=== PATIENT | female | born 1955 | race Caucasian/White ===

== ENCOUNTER 2016-10-24 06:20 | Emergency (ER) | payer OTHER, BC ==
[~2016-10-24] VITALS: Ht 160 cm; Wt 89.0 kg
[~2016-10-24 06:20] MED LIST: ALPR-411 PO
[2016-10-24 06:24] VITALS: TEMP 36.5; Ht 160 cm; Wt 89.0 kg
[2016-10-24] MEDS ORDERED: FAMOTIDINE 20 MG TAB PO STA (06:45)
[2016-10-24] MEDS ORDERED: GI COCKTAIL PO STA (06:45)
[2016-10-24] MEDS ORDERED: SODIUM CHLORIDE 0.9% 1000ML 1,000 ML IV STA (06:45)
[2016-10-24] MEDS ORDERED: SUCRALFATE 1 GM TAB PO STA (06:45)
[2016-10-24] MEDS ORDERED: hydrOXYzine HCL 25 MG TAB PO STA (06:45)
--- NOTE | 2016-10-24 06:48 | EMERGENCY ROOM VISIT NOTE ---
History Report prepared by [place]: Velma Huerta Under the Supervision of: Dr. Carlos Torres M.D. First contact with patient: 06:35 Chief Complaint: ANXIETY Stated Complaint: SEVERE ANXIETY,PRESSURE AND BURPING History of Present Illness The patient is a 61 year old female who presents to the Emergency Room with complaints of worsening anxiety recently. She admits to recent stress in her life with moving from [place] to the [facility] approximately 1 year ago. Her is 14 years older than her and she takes care of him, which has added to her stress. She has a history of anxiety and reports she has been off Ativan for "a couple months", since her primary care physician stopped filling her prescription. She took 1/2 of a Xanax last night and was able to sleep for a few hours, but she did feel anxious again when she woke up. She complains of feeling "shaky", experiencing increased belching and a tingling feeling in her hands. She does not currently see a therapist, but states she has seen one in the past. The patient also admits to a history of depression and notes she has experienced side effects to medications in the past, stating she weaned herself off of Trazodone in the past. She denies seeing any therapist or psychiatrist currently but notes she has seen a therapist in the past. The patient denies feeling suicidal or homicidal currently. She also complains of experiencing chest tightness recently, but states she cannot use her inhaler for her asthma because it makes her anxiety worse. 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 A total of 10 systems reviewed and were otherwise negative. Past Medical & Surgical Medical Problems: (1) Anxiety (2) Asthma (3) Depression Social History Smoking Status: Never Smoker Alcohol Use: occasionally Drug Use: none Marital Status: Housing Status: lives with significant other Occupation Status: retired Current/Historical Medications Scheduled [[place]], 1 TAB PO DAILY [Gua Kathy Maicol Yanna Corbett], 2 TABS PO AMPM [[place]], 1 TAB PO DAILY Scheduled PRN Alprazolam (Xanax), 0.5 MG PO BID PRN for Anxiety Lorazepam (Ativan), 1 MG PO DAILY PRN for Anxiety Allergies Uncoded Allergies: STEROIDS (Adverse Reaction, Unknown, vision problems, anxiety, 10/24/16) Physical Exam Vital Signs Date Time Temp Pulse Resp B/P Pulse Ox O2 Delivery O2 Flow Rate FiO2 10/24/16 08:04 92 16 159/91 97 Room Air 10/24/16 06:24 36.5 111 20 161/97 97 Room Air Physical Exam GENERAL: Patient is a healthy-appearing well-nourished HEAD: Normocephalic atraumatic EYES: Ocular movements intact pupils equal and react to light OROPHARYNX mucous membranes are moist no exudates present no erythema or edema present NECK: Supple no nuchal rigidity CHEST: Good equal expansion LUNGS: Clear and equal to auscultation CARDIAC: Normal S1 and S2 ABDOMEN: Soft nontender no guarding BACK: No CVA tenderness EXTREMITIES: No pain upon palpation normal muscle strength in all groups no clubbing cyanosis or edema NEURO: Patient is following commands is answering questions appropriately. Alert and oriented x3 Cranial Nerves 2-12 grossly intact PSYCHIATRIC: The patient denies being suicidal or homicidal. Medical Decision & Procedures ER Provider Diagnostic Interpretation: This X-Ray was reviewed and interpreted by myself and the radiologist. SINGLE VIEW CHEST IMPRESSION: No active disease in the chest. Electronically signed by: Gerry Bunn M.D. 10/24/2016 8:01 AM Laboratory Results 10/24/16 07:06 Red Blood Count 5.02, Mean Corpuscular Volume 85.5, Mean Corpuscular Hemoglobin 30.5, Mean Corpuscular Hemoglobin Concent 35.7, Mean Platelet Volume 8.8, Neutrophils (%) (Auto) 61.9, Lymphocytes (%) (Auto) 26.2, Monocytes (%) (Auto) 9.4, Eosinophils (%) (Auto) 1.7, Basophils (%) (Auto) 0.6, Neutrophils # (Auto) 5.56, Lymphocytes # (Auto) 2.35, Monocytes # (Auto) 0.84, Eosinophils # (Auto) 0.15, Basophils # (Auto) 0.05 10/24/16 07:06 Test 10/24/16 07:06 10/24/16 07:10 White Blood Count 8.97 K/uL (4.8-10.8) Red Blood Count 5.02 M/uL (4.2-5.4) Hemoglobin 15.3 g/dL (12.0-16.0) Hematocrit 42.9 % (37-47) Mean Corpuscular Volume 85.5 fL (80-100) Mean Corpuscular Hemoglobin 30.5 pg (25-34) Mean Corpuscular Hemoglobin Concent 35.7 g/dl (32-36) Platelet Count 199 K/uL (130-400) Mean Platelet Volume 8.8 fL (7.4-10.4) Neutrophils (%) (Auto) 61.9 % Lymphocytes (%) (Auto) 26.2 % Monocytes (%) (Auto) 9.4 % Eosinophils (%) (Auto) 1.7 % Basophils (%) (Auto) 0.6 % Neutrophils # (Auto) 5.56 K/uL (1.4-6.5) Lymphocytes # (Auto) 2.35 K/uL (1.2-3.4) Monocytes # (Auto) 0.84 K/uL (0.11-0.59) Eosinophils # (Auto) 0.15 K/uL (0-0.5) Basophils # (Auto) 0.05 K/uL (0-0.2) RDW Standard Deviation 38.9 fL (36.4-46.3) RDW Coefficient of Variation 12.6 % (11.5-14.5) Immature Granulocyte % (Auto) 0.2 % Immature Granulocyte # (Auto) 0.02 K/uL (0.00-0.02) Est Creatinine Clear Calc Drug Dose 87.0 ml/min Estimated GFR () 106.9 Estimated GFR (Non- 92.2 BUN/Creatinine Ratio 26.8 (10-20) Calcium Level 8.8 mg/dl (8.5-10.1) Magnesium Level 2.0 mg/dl (1.8-2.4) Total Bilirubin 1.0 mg/dl (0.2-1) Direct Bilirubin 0.2 mg/dl (0-0.2) Aspartate Amino Transf (AST/SGOT) 20 U/L (15-37) Alanine Aminotransferase (ALT/SGPT) 51 U/L (12-78) Alkaline Phosphatase 63 U/L (45-117) Total Protein 7.5 gm/dl (6.4-8.2) Albumin 3.7 gm/dl (3.4-5.0) Lipase 191 U/L (73-393) Bedside Hemoglobin 15.6 g/dl (12.0-16.0) Bedside Hematocrit 46 % (37-47) Bedside Sodium 139 mEq/L (135-144) Bedside Potassium 3.5 mEq/L (3.3-5.0) Bedside Chloride 101 mEq/L (101-112) Bedside Total CO2 25 mEq/l (24-31) Anion Gap 17.0 mmol/L (16-25) Bedside Blood Urea Nitrogen 19 mg/dl (7-18) Bedside Creatinine 0.6 mg/dl (0.6-1.3) Bedside Glucose (other) 144 mg/dl (70-99) Bedside Ionized Calcium (Nelson) 1.12 mmol/l (1.12-1.32) Labs reviewed by ED physician. Medications Administered Medications (Trade) Dose Ordered Sig/Matteo Route Start Time Stop Time Status Last Admin Dose Admin Miscellaneous Medication (Gi Cocktail) 24 ml NOW STAT PO 10/24/16 06:45 10/24/16 06:50 DC 10/24/16 06:45 24 ML Famotidine (Pepcid Tab) 20 mg NOW STAT PO 10/24/16 06:45 10/24/16 06:50 DC 10/24/16 07:20 20 MG Sucralfate (Carafate Tab) 1 gm NOW STAT PO 10/24/16 06:45 10/24/16 06:50 DC 10/24/16 07:20 1 GM Hydroxyzine HCl (Vistaril Tab) 25 mg NOW STAT PO 10/24/16 06:45 10/24/16 06:50 DC 10/24/16 07:20 25 MG Al Hydroxide/Mg Hydroxide (Maalox Susp) 30 ml STK-MED ONCE .ROUTE 10/24/16 07:08 10/24/16 07:11 DC 10/24/16 07:21 30 ML Lidocaine HCl (Viscous Lidocaine 2% Soln) 20 ml STK-MED ONCE .ROUTE 10/24/16 07:10 10/24/16 07:13 DC 10/24/16 07:21 20 ML Potassium Chloride (Klor-Con M10) 40 meq NOW STAT PO 10/24/16 07:34 10/24/16 07:35 DC 10/24/16 08:11 40 MEQ ECG Indication: chest pain Rate (beats per minute): 107 Rhythm: sinus tachycardia Findings: no acute ischemic change, no ectopy ED Course 0638: Past medical records reviewed. The patient was evaluated in room A2. A complete history and physical examination was performed. 0645: Vistaril Tab 25 mg PO, Carafate Tab 1 gm PO, Pepcid 20 mg PO, GI cocktail 24 ml PO. 0654: Nursing informed me the patient states she is afraid of needles and is refusing an IV as it is making her feel even more anxious. She has things to drink at home to keep her hydrated. She states she "just came here to see if she had a heart attack", and would like to go home. 0655: I reevaluated the patient. I discussed my recommendation that she remain in the ED for a chest X-Ray and she verbalized complete understanding and agreement. 0708: Maalox Susp 30 ml PO. 0710: Lidocaine HCl 20 ml PO. 0734: Potassium Chloride 40 meq PO. 0735: I spoke with Case Management. They will look into having the patient follow up with Psychiatry. 0805: Case Management has evaluated the patient. They will have our [facility] Mental Health Liaison call the patient on Wednesday to arrange for Psychiatric follow up. 0820: I reevaluated the patient. She was sleeping but awoke to talk with me. I went over the side effects for Vistaril, and she states she does not want to take it. I discussed the importance of follow up with Psychiatry. The patient states she will follow up with her primary care physician, Dr. Tristen Moe. I discussed her discharge instructions and she verbalized complete understanding and agreement. Medical Decision Prior records/ancillary studies reviewed. Triage Nursing notes reviewed. The patient's history was concerning for possible psychiatric disturbance. Differential diagnosis: Etiologies such as mood disorder, infection, hypoglycemia, electrolyte abnormalities, cardiac sources, intracerebral event, toxicologic, neurologic, as well as others were entertained. This is a 61-year-old female who presents emergency department complaining of anxiety. The patient reports that her primary care physician which she recently switched to stop writing her for Ativan however she has still been taking Xanax for her anxiety. The patient reports she has been off her Ativan for several months. The patient reports that she has not been following up with a psychiatrist. Her EKG here is normal and she has a normal CBC as well as normal renal profile. The patient denies being suicidal or homicidal. The patient was given a GI cocktail, Pepcid as well as Carafate and Vistaril. Repeat exam in approximately 2 hours revealed much improvement in the patient's symptoms as she was sleeping. I recommended that the patient be continued on Vistaril at home however the patient wishes to go over the side effects which I did. The patient at this point does not wish to be placed on Vistaril. I stressed that I cannot place her on any other psychiatric medication and that she needed follow-up with psychiatry. Case management did meet with the patient and are going to pursue follow-up on Wednesday however it sounds like the patient is reluctant to do this. She is going to follow-up with her primary care physician. [place] Drug Monitoring Program Search Results: patient reviewed within database, no issues identified Impression Primary Impression: Anxiety Scribe Attestation The scribe's documentation has been prepared under my direction and personally reviewed by me in its entirety. I confirm that the note above accurately reflects all work, treatment, procedures, and medical decision making performed by me. Departure Information Dispostion Home / Self-Care Referrals No Doctor, Assigned (PCP) Patient Instructions Anxiety Body Response, Disorder Generalized Anxiety, My [facility] Additional Instructions Follow up with Electrical Manager on Wednesday You have been examined and treated today on an emergency basis only. This is not a substitute for, or an effort to provide, complete comprehensive medical care. It is impossible to recognize and treat all injuries or illnesses in a single emergency department visit. It is therefore important that you follow up closely with Dr Moe. Call as soon as possible for an appointment. Thank you for your time and consideration. I look forward to speaking with you again soon. Please don't hesitate to call us if you have any questions.
[2016-10-24] MEDS ORDERED: ATV/1 PO (06:57)
[2016-10-24] MEDS ORDERED: [UNRECOGNIZED DRUG - OTHER] PO (06:58)
[2016-10-24] MEDS ORDERED: BACOPA COMPLEX PO (07:00)
[2016-10-24] MEDS ORDERED: [UNRECOGNIZED DRUG - OTHER] PO (07:01)
[2016-10-24] MEDS ORDERED: ALUMINUM/MAGNESIUM SUSP 30 ML UDC ONE (07:08)
[2016-10-24] MEDS ORDERED: LIDOCAINE HCL 2% VISC SOLN 20 ML UDC ONE (07:10)
[2016-10-24 07:17] LABS: BASO % 0.6 %; BASO ABS # 0.05 K/uL (0-0.2); COMPLETE YES; EOS % 1.7 %; HEMATOCRIT 42.9 % (37-47); IG% 0.2 %; LYMPH % 26.2 %; LYMPH ABS # 2.35 K/uL (1.2-3.4); MEAN CELL VOLUME 85.5 fL (80-100); MEAN CORPUSCULAR HEMOGLOBIN 30.5 pg (25-34); MEAN CORPUSCULAR HGB CONC 35.7 g/dl (32-36); MEAN PLATELET VOLUME 8.8 fL (7.4-10.4); MONO % 9.4 %; NEUT % 61.9 %; PLATELET COUNT 199 K/uL (130-400); RED BLOOD COUNT 5.02 M/uL (4.2-5.4); WHITE BLOOD COUNT 8.97 K/uL (4.8-10.8)
[2016-10-24 07:27] LABS: ISTAT CREATININE 0.6 mg/dl (0.6-1.3); ISTAT HEMOGLOBIN 15.6 g/dl (12.0-16.0); ISTAT IONIZED CALCIUM 1.12 mmol/l (1.12-1.32)
[2016-10-24 07:31] LABS: BUN/CREATININE RATIO 26.8 (10-20); CALCIUM 8.8 mg/dl (8.5-10.1); CREATININE 0.7 mg/dl (0.60-1.20); POTASSIUM 3.6 mmol/L (3.5-5.1)
[2016-10-24] MEDS ORDERED: POTASSIUM CHLORIDE 10 MEQ TABCR PO STA (07:34)
--- NOTE | 2016-10-24 08:03 | DIAGNOSTIC IMAGING REPORT ---
SINGLE VIEW CHEST CLINICAL HISTORY: Atypical chest pain. FINDINGS: An AP, portable, upright chest radiograph is obtained. No prior studies are available for comparison at the time of dictation. The examination is degraded by portable technique and large body habitus. The cardiomediastinal silhouette is unremarkable. The lungs and pleural spaces are clear. No pneumothorax is seen. The bony thorax is grossly intact. IMPRESSION: No active disease in the chest. Electronically signed by: Gerry Bunn M.D. 10/24/2016 8:01 AM Dictated Date/Time: 10/24/2016 8:01 AM
[2016-10-24 08:04] VITALS: BP 159/91; PULSE 92; O2SAT 97
== END 2016-10-24 08:28 | disposition home or self-care (01) ==
LOC: C.EDB 06:22 → C.EDA 08:28
DX: F41.9 Anxiety disorder, unspecified (principal); R07.9 Chest pain, unspecified; R20.0 Anesthesia of skin; J45.909 Unspecified asthma, uncomplicated

== ENCOUNTER 2023-07-07 08:54 | Observation (INO) ==
[2023-07-07] MEDS ORDERED: LORazepam 1 MG/1 ML SYR ED Inj Use IV STA (09:40)
--- NOTE | 2023-07-07 09:50 | Emergency Department Note ---
History of Present Illness General Chief complaint: Hypertension Stated complaint: HTN,DEHYDRATION, Time Seen by Provider: 07/07/23 09:25 History of Present Illness 68-year-old female presents emergency department states that for the past few days her blood pressure has been high. Patient was seen by her primary care physician this week. Patient has had increased panic attacks and anxiety. Patient did take a Xanax last evening as well as a Robaxin last night as a muscle relaxer she actually felt improved however this morning she woke up her blood pressure was high again she took her ex-'s 10 mg propranolol. Patient was offered blood pressure medicine by her primary care physician but she decided not to take it. Patient states that she has a history of high anxiety and at times she does use Ativan as a rescue but she did not today. Patient however denies any slurred speech blurred vision shortness of breath nausea vomiting chest pain. Patient states that she is very anxious Home Medications Medication Instructions Recorded Confirmed Type Alprazolam (Xanax) 0.5 mg PO BID PRN Anxiety ##0 07/06/08 07/07/23 History LORAZEPAM (ATIVAN) 1 mg PO DAILY PRN Anxiety #0 tabs 10/24/16 07/07/23 History omega 3-dha 60 mg-epa 90 mg-fish 1 cap PO DAILY 12/01/21 07/07/23 History oil 500 mg capsule, delayed release (Fish Oil) ipratropium 20 mcg-albuterol 100 1 puff inhalation Q4H PRN wheezing 06/26/22 07/07/23 Rx mcg/actuation mist for inhalation #4 grams (Combivent Respimat) Allergies Allergy/AdvReac Type Severity Reaction Status Date / Time STEROIDS AdvReac Unknown vision Uncoded 10/24/16 06:30 problems, anxiety Past Med/Surg History Social History Smoking Status: Never smoker Tobacco Type: Cigarettes Preferred Language: Bel[place] Feels Safe at Home: Yes Immunizations: Past medical history includes anxiety, depression Review of Systems A total of 10 systems reviewed and were otherwise negative Constitutional: no fever Ear, Nose, Mouth, Throat: no ear pain Respiratory: no cough Physical Exam Vital Signs Vital Signs - 24 hr 07/07/23 08:57 07/07/23 09:35 07/07/23 09:54 Temperature 36.6 C Temperature Source Temporal Artery Scan Pulse Rate 96 H Pulse Rate [Apical] 86 Respiratory Rate 17 20 Respiratory Effort / Characteristics Non-Labored Spontaneous Non-Labored Respiratory Depth Normal Normal Blood Pressure 187/104 H Blood Pressure [Right Arm] 179/102 H Blood Pressure Mean 131 Blood Pressure Mean [Right Arm] 127 Blood Pressure Position Sitting Pulse Oximetry 95 95 96 Oxygen Delivery Method Room Air Room Air Room Air Sepsis Recent Fever Within 48 Hours No Sepsis New/Unexplained Change in Mental Status No Sepsis Action Taken by Nursing No Action Required 07/07/23 11:23 07/07/23 11:50 07/07/23 11:53 Temperature Temperature Source Pulse Rate Pulse Rate [Apical] 43 L 42 L Respiratory Rate 22 24 Respiratory Effort / Characteristics Non-Labored Respiratory Depth Normal Blood Pressure Blood Pressure [Right Arm] 150/92 H 71/37 L 79/41 L Blood Pressure Mean Blood Pressure Mean [Right Arm] 111 48 53 Blood Pressure Position Pulse Oximetry 98 99 Oxygen Delivery Method Room Air Room Air Sepsis Recent Fever Within 48 Hours Sepsis New/Unexplained Change in Mental Status Sepsis Action Taken by Nursing 07/07/23 11:56 07/07/23 12:21 07/07/23 12:23 Temperature Temperature Source Pulse Rate 83 Pulse Rate [Apical] 51 L 74 Respiratory Rate 20 19 Respiratory Effort / Characteristics Non-Labored Spontaneous Non-Labored Respiratory Depth Normal Normal Blood Pressure Blood Pressure [Right Arm] 98/44 L 113/59 L Blood Pressure Mean Blood Pressure Mean [Right Arm] 62 77 Blood Pressure Position Pulse Oximetry 95 95 Oxygen Delivery Method Room Air Room Air Sepsis Recent Fever Within 48 Hours Sepsis New/Unexplained Change in Mental Status Sepsis Action Taken by Nursing GENERAL: Patient is awake alert in no acute distress patient is resting comfortably but very anxious EYES: The conjunctivae are clear. The pupils are round and reactive. EARS, NOSE, MOUTH AND THROAT: The nose is without any evidence of any deformity. Mucous membranes are moist. Tongue is midline. NECK: The neck is nontender and supple. RESPIRATORY: Normal respiratory effort is noted there is no evidence of wheezing rhonchi or rales CARDIOVASCULAR: Regular rate and rhythm noted there no murmurs rubs or gallops normal S1 normal S2. GASTROINTESTINAL: The abdomen is soft. Abdomen is nontender. BACK: No midline tenderness or or step-off noted range of motion in flexion extension as well as rotation no signs of muscle spasm noted MUSCULOSKELETAL/EXTREMITIES: There is no evidence of gross deformity full range of motion is noted in the hips and shoulders. SKIN: There is no obvious evidence of any rash. There are no petechiae, pallor or cyanosis noted. NEUROLOGIC: Patient is awake alert and oriented x3 strength is symmetric PSYCH: Moderately anxious Course Reevaluation(s) Reevaluation #1: Patient is resting in no distress. Patient's blood pressure is decreased to 150 systolic. Patient is resting in no distress. I discussed the evaluation with the patient. Patient at that time stated that she had some nausea Time: 11:39 Reevaluation #2: Patient was nauseated, I was in the process of ordering IV Zofran, when the patient reportedly had a single episode in which her heart rate went to 36 and her eyes were flickering according to the nurse. Patient is alert responsive heart rates greater than 60 blood pressure is 139/70 systolic Time: 11:46 Reevaluation #3: Patient had a drop in her blood pressure the nurse activated a CODE BLUE, the patient had a heart rate of 39, and a blood pressure 70. On my reassessment of the patient she states that she has a history of vasovagal syncope during surgeries and as well when she receives shots. Patient was given an IV fluid bolus of saline her blood pressure is 98/60 her heart rate is now 60. This case was discussed with the patient at bedside with Dr. Olivia from [facility] at bedside as well Time: 12:02 Consultations Consultation #1: [facility] for [facility] Time: 12:02 Administered Medications Discontinued Medications Hydralazine HCl (Hydralazine Hcl 20 Mg/Ml Vial) 10 mg IV NOW STA Stop: 07/07/23 10:54 Last Admin: 07/07/23 11:21 Dose: 10 mg Documented By: FLAVIA Lorazepam (Lorazepam 1 Mg/1 Ml Syr Ed Inj Use) 1 mg IV ONE STA Stop: 07/07/23 09:41 Last Admin: 07/07/23 09:54 Dose: 1 mg Documented By: UNIQUE Ondansetron HCl (Ondansetron Inj 2 Mg/Ml 2 Ml Vial) 4 mg IV NOW STA Stop: 07/07/23 11:42 Last Admin: 07/07/23 11:59 Dose: 4 mg Documented By: ES Critical Care Time Critical Care Time: Yes Total Critical Care Time: 35 I have personally spent greater than 35 minutes of critical care time in the direct management of this patient. This includes bedside care, interpretation of diagnostic studies, and testing, discussion with consultants, patient, and family members, and other required patient management activities. These minutes are in excess of all separately billable procedures. Medical Decision Making Medical Records Attestation: I reviewed the patient's medical records. Home Medications Current Medication List: was personally reviewed by me Laboratory Data Attestation: I reviewed the patient's lab results. Lab work interpreted by me is unremarkable 07/07/23 09:31 07/07/23 09:31 Lab Results 07/07/23 Range/Units 09:31 WBC 8.67 (4.8-10.8) K/ul RBC 5.24 (4.20-5.40) M/uL Hgb 15.7 (12.0-16.0) g/dl Hct 46.3 (37.0-47.0) % MCV 88.4 (80.0-100.0) fL MCH 30.0 (25.0-34.0) pg MCHC 33.9 (32.0-36.0) g/dL RDW Std Deviation 39.7 (36.4-46.3) fL RDW Coeff of Kumar 12.2 (11.5-14.5) % Plt Count 260 (130-400) K/uL MPV 9.2 L (9.4-12.4) fL Immature Gran % (Auto) 0.5 % Neut % (Auto) 70.2 % Lymph % (Auto) 17.9 % [place] % (Auto) 8.5 % Eos % (Auto) 2.1 % Baso % (Auto) 0.8 % Neut # (Auto) 6.09 (1.40-6.50) K/uL Lymph # (Auto) 1.55 (1.20-3.40) K/uL [place] # (Auto) 0.74 H (0.11-0.59) K/uL Eos # (Auto) 0.18 (0.00-0.50) K/uL Baso # (Auto) 0.07 (0.00-0.20) K/uL Immature Gran # (Auto) 0.04 (0.01-0.20) K/uL PT 10.3 (9.0-12.0) Seconds INR 0.9 (0.9-1.1) APTT 25.1 (21.0-31.0) Seconds PTT Ratio 0.9 Sodium 137 (136-145) mmol/L Potassium 3.9 (3.5-5.1) mmol/L Chloride 103 (98-107) mmol/L Carbon Dioxide 27 (21-32) mmol/L Anion Gap 7 (3-11) BUN 15 (6-23) mg/dl Creatinine 0.74 (0.6-1.2) mg/dl Est Cr Clr Drug Dosing 73.5 ml/min Est GFR ( Amer) 95.1 ml/min Est GFR (Non-Af Amer) 82.1 ml/min BUN/Creatinine Ratio 20.3 H (10-20) Glucose 134 H (70-99(Fasting)) mg/dl Calcium 9.5 (8.6-10.3) mg/dl Total Bilirubin 1.1 H (0.2-1.0) mg/dl AST 29 (13-39) U/L ALT 47 (7-52) U/L Alkaline Phosphatase 61 (34-104) U/L Troponin I High Sens 5.1 (0-14) pg/ml Total Protein 7.2 (6.0-8.3) gm/dl Albumin 4.3 (3.4-5.0) gm/dl Globulin 2.9 (2.5-4.0) gm/dl Albumin/Globulin Ratio 1.5 (0.9-2) Imaging Data Attestation: I personally reviewed and interpreted this imaging study as follows: My Impression: Chest x-ray interpreted by me negative for infiltrate Radiologist's Impression: Chest X-Ray 07/07/23 09:25 XR chest 1V portable CLINICAL HISTORY: Chest pain, nonspecific. COMPARISON STUDY: Chest radiograph June 26, 2022. FINDINGS: Lung volumes are normal. Lungs are clear. There is no pneumothorax or pleural effusion. Cardiac size is normal. Mediastinal contours are normal. There is no evidence for pulmonary edema. IMPRESSION: No acute cardiopulmonary findings. ACT 112: Negative or not required by law. Electronically signed by: Gonsalo Jimenes M.D. 07/07/2023 10:14 AM ECG Data Attestation: I personally reviewed and interpreted this ECG as follows: Additional Comments: EKG interpreted by me normal sinus rhythm rate of 83, normal intervals normal axis, no obvious ST segment elevation or depression EKG #2, interpreted by me as sinus bradycardia rate of 45, normal intervals normal axis no obvious ST segment elevation or depression Telemetry was ordered by me, interpreted as normal sinus rhythm rate of 83 MDM Narrative Medical decision making differential diagnosis includes hypertension, hypertensive crisis, anxiety, metabolic derangement, electrolyte abnormality, cardiac dysrhythmia Plan is to check labs, EKG, chest x-ray, give IV Ativan, observe blood pressure Patient's friend who is at bedside provides me with history that the patient called her and states that she was very anxious and thirsty today. Patient was given IV hydralazine, patient had also taken propranolol prior to arrival, the patient had a decrease in her blood pressure. Patient then stated that she was nauseated and had an episode of vasovagal response which was bradycardic and hypotensive. Patient was given IV fluids and her blood pressure and heart rate improved greatly. The case was discussed with the [facility] hospitalist for admission for vasovagal syncope, anxiety, hypertension Impression & Plan Hypertension, Anxiety, Syncope Discharge Plan Visit Data Chief Complaint: Hypertension Stated Complaint: HTN,DEHYDRATION, ED Provider: Corona Ibarra Discharge Problem: Hypertension, Anxiety, Syncope Patient Disposition: Admitted As Inpatient Forms Stand Alone Forms: My [facility], Important Visit Information Prescriptions Prescriptions: No Action Alprazolam (Xanax) 0.5 MG tablet 0.5 mg PO BID PRN (Reason: Anxiety) Qty: 0 LORAZEPAM (ATIVAN) 1 MG tablet 1 mg PO DAILY PRN (Reason: Anxiety) Qty: 0 Fish Oil 60-90-500 mg capsule,delayed release(DR/EC) 1 cap PO DAILY Combivent Respimat 20-100 mcg/actuation mist 1 puff inhalation Q4H PRN (Reason: wheezing) Qty: 4 0RF Referrals Referrals: Tristen Horton M.D. [Primary Care Provider] -
[2023-07-07 09:52] LABS: Basophils # (auto) 0.07 K/uL (0.00-0.20); Basophils % (auto) 0.8 %; Eosinophils # (auto) 0.18 K/uL (0.00-0.50); Eosinophils % (auto) 2.1 %; Hematocrit (blood only) 46.3 % (37.0-47.0); Hemoglobin 15.7 g/dl (12.0-16.0); Immature Granulocytes # (auto) 0.04 K/uL (0.01-0.20); Immature Granulocytes % (auto) 0.5 %; Lymphocytes # (auto) 1.55 K/uL (1.20-3.40); Lymphocytes % (auto) 17.9 %; Mean Corpuscular Hgb Conc 33.9 g/dL (32.0-36.0); Mean Corpuscular Volume 88.4 fL (80.0-100.0); Mean Platelet Volume 9.2 fL (9.4-12.4); Monocytes # (auto) 0.74 K/uL (0.11-0.59); Monocytes % (auto) 8.5 %; Neutrophils # (auto) 6.09 K/uL (1.40-6.50); Neutrophils % (auto) 70.2 %; Platelet Count 260 K/uL (130-400); RDW Coefficient of Variation 12.2 % (11.5-14.5); RDW Standard Deviation 39.7 fL (36.4-46.3); Red Blood Count 5.24 M/uL (4.20-5.40); White Blood Count 8.67 K/ul (4.8-10.8)
--- NOTE | 2023-07-07 10:02 | Electrocardiogram Report ---
Test Reason : Blood Pressure : / mmHG Vent. Rate : 083 BPM Atrial Rate : 083 BPM P-R Int : 194 ms QRS Dur : 084 ms QT Int : 386 ms P-R-T Axes : 066 004 051 degrees QTc Int : 453 ms Normal sinus rhythm Normal ECG When compared with ECG of 24-OCT-2016 06:32, No significant change Confirmed by Ignacio Byers ([id number]) on 07/07/2023 10:01:48 AM Referred By: REFERRED SELF Confirmed By:Ignacio Byers
[2023-07-07 10:03] LABS: INR 0.9 (0.9-1.1); Partial Thromboplastin Ratio 0.9; Partial Thromboplastin Time 25.1 Seconds (21.0-31.0); Prothrombin Time 10.3 Seconds (9.0-12.0)
[2023-07-07 10:09] LABS: Albumin Level 4.3 gm/dl (3.4-5.0); Bilirubin,Total 1.1 mg/dl (0.2-1.0); Calcium 9.5 mg/dl (8.6-10.3); Potassium 3.9 mmol/L (3.5-5.1)
[2023-07-07 10:15] LABS: Albumin Globulin Ratio 1.5 (0.9-2); BUN Creatinine Ratio 20.3 (10-20); Creatinine Clr Calc Pharmacy 73.5 ml/min; Est GFR (African American) 95.1 ml/min; Est GFR (Non-African American) 82.1 ml/min; Globulin 2.9 gm/dl (2.5-4.0); Total Protein 7.2 gm/dl (6.0-8.3)
--- NOTE | 2023-07-07 10:15 | XRay Report ---
XR chest 1V portable CLINICAL HISTORY: Chest pain, nonspecific. COMPARISON STUDY: Chest radiograph June 26, 2022. FINDINGS: Lung volumes are normal. Lungs are clear. There is no pneumothorax or pleural effusion. Car diac size is normal. Mediastinal contours are normal. There is no evidence for pulmonary edema. IMPRESSION: No acute cardiopulmonary findings. ACT 112: Negative or not required by law. Electronically signed by: Gonsalo Jimenes M.D. 07/07/2023 10:14 AM
[2023-07-07 10:18] LABS: Troponin I High Sensitivity 5.1 pg/ml (0-14)
[2023-07-07] MEDS ORDERED: hydrALAZINE HCL 20 MG/ML VIAL IV STA (10:53)
[2023-07-07] MEDS ORDERED: ONDANSETRON INJ 2 MG/ML 2 ML VIAL IV STA (11:41)
--- NOTE | 2023-07-07 12:21 | History & Physical Report ---
Date of Service July 07, 2023 Assessment & Plan (1) Symptomatic bradycardia: Plan: Patient took her 's propranolol 10 mg on the morning of 07/07 d/t anxiety and HTN She was then given hydralazine 10 mg IV in the ED and experienced a syncopal episode Avoid beta-tevin Avoid hydralazine Continuous telemetry monitoring A.m. CBC, BMP (2) Syncope: Plan: Patient fainted for 1 minute in the ED; nurse reported that eyes rolled in the back of her head, and she exhibited mild tremors and muscle rigidity CODE BLUE was called, however patient never lost a pulse No loss of urinary continence, no postictal state, no tongue biting, no hx of seizures Glucose 134 on arrival Hx of fainting as a child when getting shots (3) Anxiety: Plan: Ongoing insomnia, panic attacks, nausea, and dizziness over the past several weeks, which patient attributes to increased life stressors She reports that she takes Xanax 0.25 mg twice daily She has tried to wean in the past but experienced severe side effects: neck pain, vision changes, nausea, and insomnia Per PDMP, the patient is picking up 150 tablets of 0.5 mg lorazepam every month, which would equate to 5 tablets daily TSH pending Vitamin B12 pending (4) Benzodiazepine dependence: Plan: Unable to withdraw due to side effects Psychiatry consulted (5) Depression: Plan: No suicidal ideations No HI, or plans to hurt others She reports she has had trouble with antidepressants in the past (trialed Paxil, Zoloft), but they reportedly make her manic No hx of bipolar, per patient (6) Asthma: Plan: Combivent inhaler as needed (7) Insomnia: Plan: Melatonin 3 mg p.o. HS Plan [facility] Regular diet VTE PPx: Lovenox 40 mg SQ q24h History of Present Illness Chief Complaint: Hypertension Primary Care Provider: Tristen Horton M.D. Gena is a 68-year-old female with PMH of anxiety, depression, asthma, hypertension, and syncope. She presented in the ED after she took her 's propranolol 10 mg this morning due to hypertension since Thursday 07/05. She reports she has been having panic attacks, insomnia, nausea, and dizziness. Patient was called as a CODE BLUE in the ED; no pulse was lost, however patient exhibited symptomatic bradycardia and nursing reported that her eyes rolled back into her head and she lost consciousness for 1 minute. Patient was unresponsive with muscle rigidity and mild tremors. No tongue biting. No loss of urinary continence. No history of seizures. Patient was given hydralazine IV in the ED, in the setting of recent propranolol use. Patient was asymptomatic upon waking (no CP, SOB, pleuritic CP, dizziness, or lightheadedness). She reports that she takes Xanax 0.25 mg twice daily as needed for anxiety, and has been increasing to 3 times daily recently due to life stressors. She does not follow with a psychiatrist. She has trialed antidepressants such as Paxil and Zoloft in the past but she says she becomes manic and cannot eat or sleep when she takes them. No history of bipolar disorder to patient's knowledge. She is also trialed Wellbutrin and Pamelor (nortriptyline) in the past but this caused vision problems. Patient also does acupuncture, and many holistic approaches to medicine/herbs/supplements. While patient's heart rate reportedly dropped to 36 bpm during syncopal episode, she has since returned to the 80s bpm; vitals stable at time of admission. ED course: Hydralazine 10 mg IV Lorazepam 1 mg IV Zofran 4 mg IV ROS: Patient endorses tremors, anxiety, diarrhea, frequent urination, neck pain (spasm in May) Patient fever, MCCONNELL dizziness, lightheadedness, SOB, CP, pleuritic CP, abdominal pain, N/V, burning with urination, pain/swelling in legs. Please see Dr. Olivia's attestation for any changes to treatment plan. Allergies Allergy/AdvReac Type Severity Reaction Status Date / Time STEROIDS AdvReac Unknown vision Uncoded 10/24/16 06:30 problems, anxiety Home Medications Medication Instructions Recorded Confirmed Type Alprazolam (Xanax) 0.5 mg PO 5XD PRN Anxiety ##0 07/06/08 07/07/23 History omega 3-dha 60 mg-epa 90 mg-fish 1 cap PO DAILY 12/01/21 07/07/23 History oil 500 mg capsule, delayed release (Fish Oil) ipratropium 20 mcg-albuterol 100 1 puff inhalation Q4H PRN wheezing 06/26/22 07/07/23 Rx mcg/actuation mist for inhalation #4 grams (Combivent Respimat) doxycycline monohydrate 100 mg 100 mg PO BID 07/07/23 07/07/23 History capsule Past Med/Surg History Medical History (Updated 07/07/23 @ 13:47 by Anand Rivera PA-C) Benzodiazepine dependence Insomnia Social History Smoking Status: Unknown if ever smoked Tobacco Type: Cigarettes Second Hand Exposure: No; Do You Dip or Chew Tobacco: No; Tobacco Cessation Education Requested by Patient: No Hx Alcohol Use: No Hx Substance Use: No Preferred Language: Burmese Communication Ability: Effective Television Host Required: No Beliefs That Will Affect Care: None Current Living Situation: Spouse Other Information That Helps Us Care for You: No Feels Safe at Home: Yes Safety Concerns: Feels Safe At This Time Assistive Devices: None Review of Systems Review of Systems: See HPI above Physical Exam Physical Exam: General: Anxious, but in no acute distress; non-toxic appearing; well-nourished; lethargic HEENT: normocephalic, atraumatic; no scleral icterus; PERRLA w/ EOMs intact; moist mucus membrane; vision and hearing grossly intact Neck: supple; no JVD; no lymphadenopathy; trachea midline Skin: warm, dry without signs of tenting; no cyanosis; no rashes, bruising, lesions, or erythema noted CV: chest wall NTP; RRR; S1/S2 normal; no murmurs/rubs/gallops; pulses intact and symmetric at radial, DP, and PT Lungs: no acute respiratory distress; symmetrical chest wall expansion; clear breath sounds across all lung moreno w/o adventitious sounds; no wheezing ABD: Soft, NTP; BS present; no rebound/guarding; no ascites; no distention MSK: no tics or fasciculations; no edema noted in the LEs b/l; eczema on lower legs B/L Neuro: A&Ox3; fluent speech; no focal deficits; sensation grossly intact Results & Data Results & Data Vital Signs (Past 12 Hours) Vital Signs Temp Pulse Pulse Resp BP BP Pulse Ox 07/07/23 11: 150/92 H 07/07/23 09:54 86 20 179/102 H 96 07/07/23 09:35 95 07/07/23 08:57 36.6 C 96 H 17 187/104 H 95 O2 Del Method 07/07/23 11:23 07/07/23 09:54 Room Air 07/07/23 09:35 Room Air 07/07/23 08:57 Room Air Laboratory Results Abnormal lab results 07/07/23 Range/Units 09:31 MPV 9.2 L (9.4-12.4) fL Knox # (Auto) 0.74 H (0.11-0.59) K/uL BUN/Creatinine Ratio 20.3 H (10-20) Glucose 134 H (70-99(Fasting)) mg/dl Total Bilirubin 1.1 H (0.2-1.0) mg/dl Diagnostic Findings Chest X-Ray 07/07/23 09:25 XR chest 1V portable CLINICAL HISTORY: Chest pain, nonspecific. COMPARISON STUDY: Chest radiograph June 26, 2022. FINDINGS: Lung volumes are normal. Lungs are clear. There is no pneumothorax or pleural effusion. Cardiac size is normal. Mediastinal contours are normal. There is no evidence for pulmonary edema. IMPRESSION: No acute cardiopulmonary findings. ACT 112: Negative or not required by law. Electronically signed by: Gonsalo Jimenes M.D. 07/07/2023 10:14 AM Code Status & VTE Plan Code Status Full code VTE Prophylaxis Plan VTE Prophylaxis will be ordered: Yes Supervising Physician Co-Signing Physician Notes I personally saw and examined the patient. I independently reviewed the labs, EKG, imaging, problem list, medication list, past medical history and family history. I verified all hernandez points and agree with Anand Rivera PA-C with the following exceptions and/or additions: 68 year old female presented to the ER with increased anxiety and high blood pressure with sBP up to 180. Took her husbands propranolol this morning to no effect therefore decided to come to the ER. In the ER here she had a syncopal event when a code blue was called due to bradycardia. This was after both lorazepam and more significantly IV hydralazine given. Sinus bradycardia and hypotension resolved with IV fluids. Regarding her anxiety she reports it has been worse recently due to a of a friend. She takes Xanax up to 5 pills a day chronically. Multiple trials of SSRIs unsuccessful but also reports having side effects after hours of taking the medication. She is under psychology but not psychiatry. O/E A&Ox3, HS RRR, no murmurs, Chest CTAB, Abdo SNT, no CVA tenderness A/P Syncope, symptomatic bradycardia - iatrogenic from combination of propranolol and hydralazine. Stop anti-hypertensives and AV tamica blockers. observe on telemetry overnight for recurrence. Anxiety - continue her usual xanax dosing while here. PDMP confirmed she picks up 5 pill/day regularly. Consult psychiatry. PG Care Time/CCT Total # of Minutes Spent Total Time Spent with Patient: Total time spent is greater than 50% in coordination of care (as documented) at patient's floor/unit and/or counseling patient: [place] [address] INT INP/OBS CARE 2/55MIN Patient Type New Medical Decision Making Moderate Complexity Diagnoses Symptomatic bradycardia R00.1 Syncope R55 Anxiety F41.9 Benzodiazepine dependence F13.20 Depression F32.9 Asthma J45.909 Insomnia G47.00
--- NOTE | 2023-07-07 15:46 | Electrocardiogram Report ---
Test Reason : Blood Pressure : / mmHG Vent. Rate : 046 BPM Atrial Rate : 046 BPM P-R Int : 192 ms QRS Dur : 084 ms QT Int : 542 ms P-R-T Axes : 061 036 050 degrees QTc Int : 474 ms Sinus bradycardia Nonspecific T wave abnormality Anterior leads Prolonged QT Abnormal ECG When compared with ECG of 07-JUL-2023 09:26, Vent. rate has decreased BY 37 BPM Nonspecific T wave abnormality now present Anterior leads Confirmed by Ignacio Byers ([id number]) on 07/07/2023 3:46:06 PM Referred By: REFERRED SELF Confirmed By:Ignacio Byers
[2023-07-07] MEDS ORDERED: MELATONIN 3 MG TAB PO PRN (16:15)
[2023-07-07] MEDS ORDERED: ACETAMINOPHEN 325 MG TAB PO PRN (16:15)
[2023-07-07] MEDS ORDERED: IPRATROPIUM BROMIDE/ALBUTEROL respimat INH INH PRN (16:15)
[2023-07-07] MEDS ORDERED: ALPRAZolam 0.5 MG TABLET PO PRN ×2 (16:15→23:42)
[2023-07-07] MEDS ORDERED: Albuterol HFA 8 GM Inhaler (Combivent Respimat P&T Subs) INH PRN (16:30)
[2023-07-07] MEDS ORDERED: Ipratropium HFA Inhaler (Combivent Respimat P&T Subs) INH PRN (16:31)
[2023-07-07] MEDS ORDERED: ONDANSETRON INJ 2 MG/ML 2 ML VIAL IV PRN (18:00)
[2023-07-07] MEDS ORDERED: ENOXAPARIN INJ 40 MG/0.4 ML SYR SQ SCH (19:00)
[2023-07-08] MEDS ORDERED: ALPRAZolam 0.5 MG TABLET PO SCH ×2 (00:30→09:00)
[2023-07-08 05:27] LABS: Basophils # (auto) 0.06 K/uL (0.00-0.20); Basophils % (auto) 0.7 %; Eosinophils # (auto) 0.14 K/uL (0.00-0.50); Eosinophils % (auto) 1.6 %; Hematocrit (blood only) 43.2 % (37.0-47.0); Hemoglobin 14.8 g/dl (12.0-16.0); Immature Granulocytes # (auto) 0.04 K/uL (0.01-0.20); Immature Granulocytes % (auto) 0.4 %; Lymphocytes # (auto) 1.93 K/uL (1.20-3.40); Lymphocytes % (auto) 21.7 %; Mean Corpuscular Hgb Conc 34.3 g/dL (32.0-36.0); Mean Corpuscular Volume 87.6 fL (80.0-100.0); Mean Platelet Volume 9.4 fL (9.4-12.4); Monocytes # (auto) 0.86 K/uL (0.11-0.59); Monocytes % (auto) 9.7 %; Neutrophils # (auto) 5.87 K/uL (1.40-6.50); Neutrophils % (auto) 65.9 %; Platelet Count 240 K/uL (130-400); RDW Coefficient of Variation 12.4 % (11.5-14.5); RDW Standard Deviation 40.2 fL (36.4-46.3); Red Blood Count 4.93 M/uL (4.20-5.40)
[2023-07-08 05:31] LABS: BUN Creatinine Ratio 21.1 (10-20); Calcium 8.9 mg/dl (8.6-10.3); Creatinine Clr Calc Pharmacy 76.6 ml/min; Est GFR (Non-African American) 86.3 ml/min; Potassium 3.8 mmol/L (3.5-5.1)
[2023-07-08] MEDS ORDERED: DOXYCYCLINE HYCLATE 100 MG CAP PO SCH (09:00)
--- NOTE | 2023-07-08 10:47 | Psychiatric Consultation ---
Date of Consultation July 08, 2023 Impression / Recommendations Impression Psychiatry consult placed for patient for recommendations regarding her benzodiazepine use/hx withdrawal with attempt to taper. Unfortunately patient left AMA this morning before she could be seen for psychiatry consult. In general recommendation for anyone over age 65 is to limit use of benzodiazepines given increased risks of falls/cognitive decline/confusion. In general shorter acting benzodiazepines such as Xanax are often more successfully tapered if converted to an equivalent dose of a longer acting benzodiazepine such as Klonopin and then slowly tapered month by month to discontinuation with goal of only having 4-5 tabs per month for severe panic attacks as more consistent use leads to physiologic dependency and can actually worsen anxiety over time. Psych History Allergies Allergy/AdvReac Type Severity Reaction Status Date / Time STEROIDS AdvReac Unknown vision Uncoded 10/24/16 06:30 problems, anxiety Home Medications Medication Instructions Recorded Confirmed Type Alprazolam (Xanax) 0.5 mg PO 5XD PRN Anxiety ##0 07/06/08 07/07/23 History omega 3-dha 60 mg-epa 90 mg-fish 1 cap PO DAILY 12/01/21 07/07/23 History oil 500 mg capsule, delayed release (Fish Oil) ipratropium 20 mcg-albuterol 100 1 puff inhalation Q4H PRN wheezing 06/26/22 07/07/23 Rx mcg/actuation mist for inhalation #4 grams (Combivent Respimat) doxycycline monohydrate 100 mg 100 mg PO BID 07/07/23 07/07/23 History capsule Patient History Medical History (Updated 07/07/23 @ 13:47 by Anand Rivera PA-C) Benzodiazepine dependence Insomnia Social History Smoking Status: Unknown if ever smoked Tobacco Type: Cigarettes Second Hand Exposure: No; Do You Dip or Chew Tobacco: No; Tobacco Cessation Education Requested by Patient: No Hx Alcohol Use: No Hx Substance Use: No Preferred Language: German Communication Ability: Effective Doorkeeper Required: No Beliefs That Will Affect Care: None Current Living Situation: Spouse Other Information That Helps Us Care for You: No Feels Safe at Home: Yes Safety Concerns: Feels Safe At This Time Assistive Devices: None Physical Exam Vital Signs (Past 24 Hours): Last Vital Signs Temp 36.5 C 07/08/23 07:52 Pulse 87 07/08/23 07:52 Resp 16 07/08/23 07:52 BP 136/77 07/08/23 07:52 Pulse Ox 96 07/08/23 07:52 O2 Del Method Room Air 07/08/23 07:52 O2 Flow Rate 0 07/07/23 21:46 Results & Data (PSY) Medications Administered Acetaminophen (Acetaminophen 325 Mg Tab) 650 mg PO Q4H PRN PRN Reason: Pain (1-4) Or Fever Stop: 08/06/23 16:14 Last Admin: 07/07/23 18:35 Dose: 650 mg Documented By: ANUEL Alprazolam (Alprazolam 0.5 Mg Tablet) 1.25 mg PO HS [facility] Stop: 08/07/23 00:29 Last Admin: 07/08/23 00:30 Dose: 1.25 mg Documented By: PARISH Alprazolam (Alprazolam 0.5 Mg Tablet) 0.5 mg PO BID17 [facility] Stop: 08/07/23 08:59 Last Admin: 07/08/23 09:28 Dose: 0.5 mg Documented By: HENRY Doxycycline Hyclate (Doxycycline Hyclate 100 Mg Cap) 100 mg PO BID KENDY Stop: 07/15/23 09:01 Last Admin: 07/08/23 09:21 Dose: 100 mg Documented By: HENRY Coding Level of Care Code None
--- NOTE | 2023-07-08 11:52 | Discharge Summary ---
Date of Service July 08, 2023 Admission HPI Per Admitting Provider Gena is a 68-year-old female with PMH of anxiety, depression, asthma, hypertension, and syncope. She presented in the ED after she took her 's propranolol 10 mg this morning due to hypertension since Thursday 07/05. She reports she has been having panic attacks, insomnia, nausea, and dizziness. Patient was called as a CODE BLUE in the ED; no pulse was lost, however patient exhibited symptomatic bradycardia and nursing reported that her eyes rolled back into her head and she lost consciousness for 1 minute. Patient was unresponsive with muscle rigidity and mild tremors. No tongue biting. No loss of urinary continence. No history of seizures. Patient was given hydralazine IV in the ED, in the setting of recent propranolol use. Patient was asymptomatic upon waking (no CP, SOB, pleuritic CP, dizziness, or lightheadedness). She reports that she takes Xanax 0.25 mg twice daily as needed for anxiety, and has been increasing to 3 times daily recently due to life stressors. She does not follow with a psychiatrist. She has trialed antidepressants such as Paxil and Zoloft in the past but she says she becomes manic and cannot eat or sleep when she takes them. No history of bipolar disorder to patient's knowledge. She is also trialed Wellbutrin and Pamelor (nortriptyline) in the past but this caused vision problems. Patient also does acupuncture, and many holistic approaches to medicine/herbs/supplements. While patient's heart rate reportedly dropped to 36 bpm during syncopal episode, she has since returned to the 80s bpm; vitals stable at time of admission. ED course: Hydralazine 10 mg IV Lorazepam 1 mg IV Zofran 4 mg IV ROS: Patient endorses tremors, anxiety, diarrhea, frequent urination, neck pain (spasm in May) Patient fever, MCCONNELL dizziness, lightheadedness, SOB, CP, pleuritic CP, abdominal pain, N/V, burning with urination, pain/swelling in legs. Please see Dr. Olivia's attestation for any changes to treatment plan. Principal Diagnosis Vasovagal syncope Discharge Exam The patient left AMA before I could see her Discharge Data Allergies Allergy/AdvReac Type Severity Reaction Status Date / Time STEROIDS AdvReac Unknown vision Uncoded 10/24/16 06:30 problems, anxiety Consultations 07/07/23 12:02 ED Decision to Admit Stat 07/07/23 13:48 Consult Psychiatry Routine Hospital Course (1) Symptomatic bradycardia: Appears to be vasovagal syncope from ER records. The patient left AMA before I could see her. (2) Syncope: Appears to be vasovagal after she received intravenous hydralazine in the ED. She left AMA before I could see her. (3) Anxiety: Chronic. Continue current medications. Outpatient management (4) Benzodiazepine dependence: Unable to withdraw due to side effects. (5) Depression: Stable. Continue current medications (6) Asthma: Stable. Continue as needed inhaler use (7) Insomnia: Melatonin 3 mg p.o. HS Plan The patient left the hospital AMA Total Time Total Time Spent Total Time Spent (In Minutes): 20 minutes Discharge Plan Discharge Items Patient Disposition: Against Medical Advice Reason For Visit: SYMPTOMATIC BRADYCARDIA, SYNCOPE Activity: Resume your previous activity Non-emergency contact: Primary Care Provider Follow-up/Referrals: Tristen Horton M.D. [Primary Care Provider] - (Please call your Primary Care Provider to set up a follow up appt. ) Pending Studies at Discharge: No Stand-Alone Forms: My [employer], Smoking Cessation Medications and DC Order Prescriptions: Continued Alprazolam (Xanax) 0.5 MG tablet 0.5 mg PO 5XD PRN (Reason: Anxiety) Qty: 0 Rx Instructions: takes 0.5mg in morning, dinner, 1.25mg at night Fish Oil 60-90-500 mg capsule,delayed release(DR/EC) 1 cap PO DAILY Combivent Respimat 20-100 mcg/actuation mist 1 puff inhalation Q4H PRN (Reason: wheezing) Qty: 4 0RF doxycycline monohydrate 100 mg capsule 100 mg PO BID Rx Instructions: July 05 for 10 days Admission Data Admit Date/Time: 07/07/23 13:35 Attending Provider: Ritchie Vargas Admit Provider: Naeem Olivia Primary Care Provider: Tristen Horton Other Providers: Naeem Olivia; Deyanira Echavarria; Karmen Velarde; Nam Andrade Coding Level of Care Code 10215 IN/OBS DISCH 30 MIN/LESS Diagnoses Symptomatic bradycardia R00.1 Syncope R55 Anxiety F41.9 Benzodiazepine dependence F13.20 Depression F32.9 Asthma J45.909 Insomnia G47.00
--- OUTSIDE RECORDS SUMMARY | 2023-07-09 05:24 | External Medical Summary | Summary of Care ---
Author Name Unknown Organization [facility] Address [address] [place] [address] Phone [phone] Care Team Providers Care Hydraulic Assembler Name Role Phone Tristen Horton MD Primary Care Provider Encounter Details Date Type Department Care Team Description 07/10/2011 Hospital Encounter Radiology Film File [address] [place] [address] Allergies Active Allergy Reactions Severity Noted Date Comments Amoxicillin-Pot Clavulanate Diarrhea 10/17/19 11 Doxycycline Hyclate Nausea/vomiting 10/17/2010 Erythromycin Abdominal pain 10/17/2010 documented as of this encounter (statuses as of 01/21/2023) Medications Medication Sig Dispensed Refills Start Date End Date Status XANAX 0.5 MG PO TABS 1 tab twice daily, 2 tabs at bedtime 0 Active TRAZODONE HCL 50 MG PO TABS 1 tab at bedtime 0 Active PROAIR HFA 108 (90 BASE) MCG/ACT IN AERS 2 puffs 4 x daily as needed 0 Active VITAMIN C (CALCIUM ASCORBATE) PO POWD daily 0 Active MULTI-VITAMIN PO TABS 1 tablet daily 0 Active VITAMIN B COMPLEX-C PO CAPS 1 tablet daily 0 Active GRAPE SEED EXTRACT 100 MG PO CAPS 1 capsule twice daily 0 Active MULTIPLE MINERALS PO TABS 1 - 3 tablets 0 Active MAGNESIUM MALATE POWD daily 0 Act michelle POTASSIUM AMINOBENZOATE 60 MG PO CAPS as needed 0 Active ENZYME DIGEST PO CAPS 1 capsule daily 0 Active documented as of this encounter (statuses as of 01/21/2023) Active Problems Problem Noted Date HALLUX VALGUS 06/04/2004 Asthma, persist, severity to be determin ed ADJ REACT-ANXIOUS MOOD SLEEP DISTURBANCE NOS PANIC DISORDER SOLITARY CYST OF BREAST Overview: Breast Cyst x 2 documented as of this encounter (statuses as of 01/21/2023) Resolved Problems Problem Noted Date Resolved Date ALOPECIA NOS 10/17/2010 documented as of this encounter (statuses as of 01/21/2023) Social History Tobacco Use Types Packs/Day Years Used Date Smoking Tobacco: Former Cigarettes 14 Alcohol Use Standard Drinks/Week Comments Yes 0 (1 standard drink = 0.6 oz pur e alcohol) rarely Sex Assigned at Date Recorded Not on file Job Start Date Occupation Industry Not on file Not on file Not on file documented as of this encounter Plan of Treatment Upcoming Encounters Date Type Specialty Care Team Description 01/29/2023 Imaging Radiology 01/29/2023 Imaging Radiology Health Maintenance Due Date Last Done Comments COVID-19 Vaccine (#1) 1955 Pneumococcal Vaccine: 65+ Years (1 - PCV) 1959 Depression Screening, Annual for Pts 12 and Over 1965 Hepatitis C Screening 1971 DTaP,Tdap,and Td Vaccines (1 - Tdap) 02/08/1972 Colonoscopy 1998 Fecal Occult Blood Test 1998 Sigmoidoscopy 1998 Zoster Vaccines (1 of 2) 2003 DXA Scan 2018 Lipid Panel 07/29/2021 07/29/2016, 04/30/2016, 11/07/2015 Influenza Vaccine (FLU shot) (Season Ended) 2023 Mammogram 01/01/2024 12/31/2022 Cologuard 09/10/2024 09/10/2021, 09/01/2021 Colorectal Cancer Screening 09/10/2024 GARDASIL-HPV IMMUNIZATION SERIES Aged Out No longer eligible b ased on patient's age to complete this topic Hepatitis B Aged Out No longer eligi ble based on patient's age to complete this topic MENINGOCOCCAL (MENACTRA/MENVEO) Aged Out No longer eligible b ased on patient's age to complete this topic documented as of this encounter Medical Devices Not on filedocumented as of this encounter Procedures Procedure Name Priority Date/Time Associated Diagnosis Comments RADIOLOGY EXAM - MAMMOGRAPHY (IMAGES ONLY, NO REPORT) Routine 07/10/2011 4:00 PM EST documented in this encounter Results * RADIOLOGY EXAM - MAMMOGRAPHY (IMAGES ONLY, NO REPORT) (07/10/2011 4:00 PM EST) 07/10/2011 3:56 PM EST Narrative Scheduling, Silent - 01/20/2023 10:59 AM EDT This is an imaging study not interpreted or resulted by a [facility] or [facility] contracted radiologist. Tristen Horton MD RAD MAMMOGRAPHY documented in this encounter Care Teams Hydraulic Assembler Relationship Specialty Start Date End Date Tristen Horton MD [address] [place] [id number] PCP - General Internal Medicine 10/14/10 documented as of this encounter
--- OUTSIDE RECORDS SUMMARY | 2023-07-09 05:24 | External Medical Summary | Summary of Care ---
Author Name Unknown Organization [facility] Address [address] [place] [address] Phone [phone] Care Team Providers Care Floor Coverer Name Role Phone Efren Givens Primary Care Provider Unajeremy ilpat Encounter Details Date Type Department Care Team Description 03/05/2010 Hospital Encounter Radiology Film File [address] [place], [place] [id number] Allergies Active Allergy Reactions Severity Noted Date Comments Amoxicillin-Pot Clavulanate Diarrhea 10/17/19 11 Doxycycline Hyclate Nausea/vomiting 10/17/2010 Erythromycin Abdominal pain 10/17/2010 documented as of this encounter (statuses as of 01/21/2023) Medications No known medicationsdocumented as of this encounter (statuses as of [...] Types Packs/Day Years Used Date Smoking Tobacco: Never Assessed Sex Assigned at Date Recorded Not on [...] - MAMMOGRAPHY (IMAGES ONLY, NO REPORT) Routine 03/05/2010 11:15 AM EDT documented in this encounter Results * RADIOLOGY EXAM - MAMMOGRAPHY (IMAGES ONLY, NO REPORT) (03/05/2010 11:15 AM EDT) 03/05/2010 11:1 5 AM EDT Narrative Scheduling, Silent - 01/20/2023 10:58 AM EDT This is an imaging study not interpreted or resulted by a [facility] or [facility] contracted radiologist. Tristen Horton MD RAD MAMMOGRAPHY documented in this encounter Care Teams Floor Coverer Relationship Specialty Start Date End Date Efren Givens PCP - General 06/04/04 09/14/10 documented as of this encounter
--- OUTSIDE RECORDS SUMMARY | 2023-07-09 05:24 | External Medical Summary | Continuity of Care Document ---
Author Name Unknown Organization [facility] [address] Address [address] [place], [place] [id number] Care Team Providers Care Developmental Behavioral Physician Name Role Phone MckeonDexhui Kyra Primary Care Physician [phone] [id number] Date(s): 06/02/23 - 06/02/23 [facility] [address] [place] [address] [facility] [address], [facility] [address] [place], [place] [phone] Encounter Diagnosis Essential (primary) hypertension(Final) - Hyperglycemia, unspecified(Final) - Vitamin D deficiency, unspecified(Final) - Impaired fasting glucose(Final) - Other fatigue(Final) - Discharge Disposition: Home or Self Care Attending Physician: MD Horton Bharat Referring Physician: MD Horton Bharat Allergies, Adverse Reactions, Alerts Substance Reaction Severity Status erythromycin stomach pains Active Augmentin Diarrhea Active Tape rash Active Latex rash Active anabolic steroids anxiety, vision issue. Active Medications Ativan 1 mg oral tablet Start: 09/09/22 15:52:00 EST, 0.5 tab, PO, Daily, Disp# 30 tab, Refills: 0, Note to Pharmacy: [facility] brand, PRN: as needed for anxiety, Pharmacy: [facility] #[id number] Start Date: 09/09/22 Status: Ordered BuSpar 5 mg oral tablet Start: 11/11/22 17:31:00 EDT, 1 tab, PO, bid, Disp# 60 tab, Refills: 3, Pharmacy: [facility]/pharm[facility] #[id number] Start Date: 11/11/22 Stop Date: 03/11/23 Status: Ordered Combivent Respimat 20 mcg-100 mcg/inh inhalation aerosol Start: 07/09/22 12:46:00 EST, 1 puff, inhaled, qid Start Date: 07/09/22 Status: Ordered magnesium aspartate Start: 05/25/21 12:49:00 EDT Start Date: 01/14/21 Status: Ordered methocarbamol 750 mg oral tablet Start: 07/10/21 14:13:00 EST, 1 tab, PO, qid, Disp# 30 tab, Refills: 0, PRN: spasms, [id number] Start Date: 07/10/21 Status: Ordered Multiple minerals Start: 04/27/19 15:48:00 EDT, Multiple minerals Start Date: 04/27/19 Status: Ordered One Touch Delica Plus (33G) Lancets Start: 07/10/21 14:13:00 EST, See Instructions, Disp# 100 each, Refills: 0, Use to test BSG daily, Pharmacy: [facility]/pharmacy #[id number] Start Date: 07/10/21 Status: Ordered ONE TOUCH DELICA PLUS 33G LANC ONE TOUCH DELICA PLUS 33G LANC, See Instructions, Disp# 100 unknown unit, Refills: 0, USE DAILY, Pharmacy [facility] ST[id number] Start Date: 10/13/21 Status: Ordered ONE TOUCH DELICA PLUS 33G LANC Start: 01/09/22 16:59:00 EDT, ONE TOUCH DELICA PLUS 33G LANC, See Instructions, Disp# 100 unknown unit, Refills: 0, USE DAILY, Pharmacy [facility] ST[id number] Start Date: 01/09/22 Status: Ordered One Touch Ultra Test Strips 100 ct Start: 10/05/22 15:55:00 EST, See Instructions, Disp# 100 each, Refills: 2, Use to test blood sugardaily, Pharmacy: [facility]/pharmacy #[id number] Start Date: 10/05/22 Status: Ordered Probiotic Formula Start: 04/27/19 15:49:00 EDT Start Date: 04/27/19 Status: Ordered unknown medication Start: 01/05/19 16:03:00 EDT, Ashwagandha paste Start Date: 01/05/19 Status: Ordered Vitamin C Start: 01/14/21 12:49:00 EDT Start Date: 01/14/21 Status: Ordered Vitamin D3 Start: 01/14/21 12:49:00 EDT Start Date: 01/14/21 Status: Ordered Xanax 0.5 mg oral tablet Start: 11/05/22 9:58:00 EDT, See Instructions, Disp# 120 tab, Refills: 0, Take one po q am, one po q afternoon, and 2 po qhs, Note to Pharmacy: per last visit, tapering to 4/day - pt requests [employer] brand only, Pharmacy: [facility]/pharmacy #[id number] Start Date: 11/05/22 Status: Ordered Zinc Start: 01/14/21 12:50:00 EDT Start Date: 01/14/21 Status: Ordered Problem List Condition Confirmation Course Effective Dates Status H ealth Status Informant Eczema of lower leg Confirmed Active Generalized anxiety disorder Confirmed Active Impaired fasting glucose Confirmed Active Refused influenza vaccine Confirmed Active White coat syndrome without diagnosis of hypertension Confirmed Active Screening mammography declined Confirmed Active Mixed hyperlipidemia Confirmed Active Fear of other medical care Confirmed Active Posterior vitreous detachment of left eye Confirmed Active Tubular adenoma of colon Confirmed Active COVID-19 vaccination declined Confirmed Active Procedures Procedure Date Related Diagnosis Body Site Status Colonoscopy 1 02/26/22 Completed 08/03/2022 11:17 EDT - MD Tyrese, Aj Carbajal COLO to cecum, mealanosis, 6 mm polyp at 25 cm CS, rectal polyp 4 mm CS, Pathology 1. Colon, 25 cm, polypectomy: Tubular adenoma 2.Colon, rectum, polypectomy: Unremarkable colonic mucosa with prominent lymphoid aggregate. Results Laboratory List Name Date Lipid Profile (LIPOPROTEINS) 06/02/23 Request to FAX Report (First Location) ( ACC NO TO BE FAXED) 06/02/23 Complete Blood Count w Differential (CBC ,DIFFH) 06/02/23 Comprehensive Metabolic Panel (COMP META B PANEL) 06/02/23 Hemoglobin A1C (HEMOGLOBIN, A1C) 3 Request to FAX Report (First Location) ( ACC NO TO BE FAXED) 06/02/23 T4, Free (T4, FREE) 06/02/23 Thyroid Stimulating Hormone (TSH) Vitamin D, 25-Hydroxy Level, Total (25-H YDROXY VITAMIN D) 06/02/23 Most recent to oldest [Reference Range]: 1 2 eGFR CKD-EPI [>60 mL/min/1.73 m2] >90 mL /min/1.73 m2 1 (06/02/23 11:54 AM) Estimated Average Glucose 114 mg/dL 2 (06/02/23 11:54 AM) Vitamin D, 25-Hydroxy [30-100 ng/mL] 31 ng/mL 3 (06/02/23 11:54 AM) Non-HDL 168 mg/dL 4 (06/02/23 1:15 PM) Phone No [phone] (06/02/23 1:15 PM) [phone] (06/02/23 11:54 AM) Faxed on: 06/03/23 09:42 (06/02/23 1:15 PM) 06/04/23 09:06 (06/02/23 11:54 AM) MPV [9.0-12.2 fL] 9.5 fL (06/02/23 11:54 AM) Immature Gran% 0.1 % (06/02/23:54 AM) Neut% 57.5 % (06/02/23 11:54 AM) Lymph% 28.4 % (06/02/23 11:54 AM) Cooke% 10.5 % (06/02/23 11:54 AM) Baso% 0.6 % (06/02/23 11:54 AM) Eos% 2.9 % (06/02/23 11:54 AM) Immat Gran, Abs [0-0.4 K/uL] 0.01 K/uL 7 (06/02/23 11:54 AM) Neut, Abs [2.0-7.7 K/uL] 3.93 K/uL (06/02/23 11:54 AM) Lymph, Abs [1.0-3.4 K/uL] 1.94 K/uL (06/02/23 11:54 AM) Cooke, Abs [0-1.0 K/uL] 0.72 K/uL (06/02/23 11:54 AM) Baso, Abs [0-0.1 K/uL] 0.04 K/uL (06/02/23 11:54 AM) Eos, Abs [0-0.5 K/uL] 0.20 K/uL (06/02/23 11:54 AM) Type of Diff: AUTO *Unknown* (06/02/23 11:54 AM) RDW [11.5-14.2 %] 12.9 % (06/02/23 11:54 AM) Anion Gap [5-14 mmol/L] 5 mmol/L (06/02/2354 AM) Alb [3.5-5.0 g/dL] 4.3 g/dL (06/02/2354 AM) Alk Phos [38-126 unit/L] 65 unit/L (06/02/2354 AM) ALT [<35 unit/L] 35 unit/L *HI* (06/02/23 AM) AST [15-46 unit/L] 31 unit/L (06/02/23 AM) BUN [7-20 mg/dL] 13 mg/dL (06/02/23 AM) Ca [8.4-10.2 mg/dL] 8.9 mg/dL (06/02/23 AM) Chol/HDL 5 (06/02/23:15 PM) Chol [125-200 mg/dL] 206 mg/dL *HI* (06/02/23:15 PM) Cl- [96-107 mmol/L] 104 mmol/L (06/02/23 AM) HCO3 [22-30 mmol/L] 30 mmol/L (06/02/23 AM) Cret [0.60-1.00 mg/dL] 0.71 mg/dL (06/02/23 AM) HbA1c [4.0-6.0 %] 5.6 % (06/02/23 AM) Glu [74-106 mg/dL] 120 mg/dL *HI* (06/02/23 AM) Hct [35-44 %] 45.6 % *HI* (06/02/23 AM) HDL [>35 mg/dL] 38 mg/dL (06/02/23 1:15 PM) Hgb [11.7-15.0 g/dL] 15.2 g/dL *HI* (06/02/23 AM) K [3.5-5.1 mmol/L] 3.9 mmol/L (06/02/23 AM) LDL Chol, Calculated [50-130 mg/dL] 128 mg/dL (06/02/23 1:15 PM) MCH [28-33 pg] 30.3 pg (10/11/23 11:54 AM) MCHC [32-36 g/dL] 33.3 g/dL (06/02/23 11:54 AM) MCV [81-96 fL] 91.0 fL (06/02/23 11:54 AM) Na [137-145 mmol/L] 139 mmol/L (06/02/23 11:54 AM) Plts [150-350 K/uL] 217 K/uL (06/02/23 11:54 AM) RBC [3.90-5.00 M/uL] 5.01 M/uL *HI* (06/02/23 11:54 AM) Free T4 [0.70-1.48 ng/dL] 0.99 ng/dL 8 (06/02/23 11:54 AM) T Bili [0.2-1.3 mg/dL] 1.2 mg/dL (06/02/23 11:54 AM) Prot [6.3-8.2 g/dL] 7.6 g/dL (06/02/23 11:54 AM) TG [<200 mg/dL] 199 mg/dL (06/02/23 1:15 PM) TSH [0.47-4.68 uIU/mL] 2.22 uIU/mL 9 (06/02/23 11:54 AM) WBC [4.0-10.4 K/uL] 6.84 K/uL (06/02/23 11:54 AM) 1Result Comment: Testing Performed By: Dept of Pathology [facility] [address], [address] [place] [address], [place] [address] 2Result Comment: Testing Performed By: Dept of Pathology [facility] [address] [place] [address], [place] [address] 3Result Comment: Deficiency: <20 ng/mL Insufficiency: 21-29 ng/mL Sufficiency: 30-100 ng/mL Potenial Toxicity: >150 ng/mL 4Result Comment: Testing Performed By: Dept of Pathology [facility] [address]yes [address] [place], [place] [address] [place] [address] 5Result Comment: Testing Performed By: Dept of Pathology [facility] [address] [place] [address], [place] [address] 6Result Comment: Testing Performed By: Dept of Pathology [facility] [address] [place] [address] 7Result Comment: Testing Performed By: Dept of Pathology [facility] Sarah [address], [address], [place] [address] 8Result Comment: Testing Performed By: Dept of Pathology [facility] [address], [address], [place] [address] 9Result Comment: Testing Performed By: Dept of Pathology [facility] [address], [address], [place] [address] Social History Social History Type Response Smoking Status Never smoked cigaret baylee Sex Female Patient Care team information Care Team Personnel Name: MD Mike, James Rae Position: Physician Member Role: Primary Care Provider Address: Address: [address] [place] [address], [place] [address] Care Team Related Persons Name: ISABEL ENNIS Address: home [address] [facility] [place] [id number]
== END 2023-07-08 10:00 | disposition left against medical advice (07) ==
LOC: ED 08:54 → INTOOBSV 13:35 → EDINP 13:35 → SUATTDRO 13:35 → 2W 23:46